=== PATIENT | female | born 1960 | race American Indian/Alaskan Native ===

== ENCOUNTER 2017-07-05 07:42 | Observation (INO) | payer OTHER ==
[2017-07-05 08:11] VITALS: BMI 40.6
--- NOTE | 2017-07-05 09:33 | CP.SDSHP ---
Same Day Surgery H & P - History Proposed Procedure: colonoscopy - Previous Medical/Surgical History Endocrine/Metabolic: Diabetes Neuro: Other (bipolar) - Allergies Allergies: Allergies No Known Allergies Allergy (Verified 07/05/17 08:07) - Physical Exam Vital Signs: Vital Signs 07/05/17 08:11 Temperature 97 F L Pulse Rate 72 Respiratory 20 Rate Blood Pressure 132/76 O2 Sat by Pulse 97 Oximetry - Date & Time Date: 07/05/17 Time: 09:33 Short Stay Discharge - Short Stay Discharge Admitting Diagnosis/Reason for Visit: SCREENING Disposition: HOME/ ROUTINE
[2017-07-05] MEDS ORDERED: Midazolam 2 MG/2 ML VIAL ONE (09:35)
[2017-07-05] MEDS ORDERED: Propofol 10 mg/ml Inj (20 ML) ONE ×2 (09:35→09:53)
--- NOTE | 2017-07-05 11:44 | PCM.RRT ---
[employer] Nurses Assessment - Situation Date: 07/05/17 Time [employer] was called: 11:30 Plan - Assessment of Findings&Treatment Plan House Doctor called for chest pain Patient is s/p colonoscopy - staff notified she was laying on her left side during the procedure. When she awoke from the procedure, she reported sharp chest pain that radiated to her left shoulder and back. It appeared there were ST elevations on the monitor. EKG was ordered, appeared bradycardia but no ST elevations or depressions were noted. Troponin was ordered - negative. On exam the chest pain was reproducible, TTP midsternal. Patient admitted for observation under manager of exhibitions and collections physician's service - Dr. Randy Smith. Cardio consulted due to risk factors DM, HLD, mother of CA in her 50s. ECHO, ROMIs and EKGs, A1C, Lipid panel, TSH, free T4. Further management as per Dr. Randy Smith.
[2017-07-05 12:28] LABS: BASO % 0.7 % (0.0-2.0); EOS # 0.1 K/uL (0.0-0.7); EOS % 1.3 % (0.0-4.0); HEMATOCRIT 34.3 % (34.0-47.0); LYMPH # 1.5 K/uL (1.0-4.3); LYMPH % 34.6 % (20.0-40.0); MEAN CELL VOLUME 90.5 fL (81.0-99.0); MEAN CORPUSCULAR HEMOGLOBIN 30.9 pg (27.0-31.0); MEAN CORPUSCULAR HGB CONC 34.1 g/dL (33.0-37.0); MEAN PLATELET VOLUME 7.7 fL (7.2-11.7); MONO # 0.2 K/uL (0.0-0.8); MONO % 5.3 % (0.0-10.0); RED CELL DISTRIBUTION WIDTH 13.7 % (11.5-14.5); WHITE BLOOD COUNT 4.4 K/uL (4.8-10.8)
--- NOTE | 2017-07-05 14:34 | RAD ---
HISTORY: C/O CHEST PAIN COMPARISON: No prior. FINDINGS: LUNGS: No active pulmonary disease. PLEURA: No significant pleural effusion identified, no pneumothorax apparent. CARDIOVASCULAR: Normal. OSSEOUS STRUCTURES: No significant abnormalities. VISUALIZED UPPER ABDOMEN: Normal. OTHER FINDINGS: None. IMPRESSION: No acute cardiopulmonary disease appreciated.
[2017-07-05 17:46] VITALS: RESP 20
[2017-07-05] MEDS: Albuterol-Ipratrop 3 mg / 0.5 (3 ml) UD INH SCH (19:46)
[2017-07-05 20:01] LABS: CHLORIDE 101 mmol/L (98-107); POTASSIUM 3.7 mmol/L (3.6-5.2); SODIUM 133 mmol/L (132-148)
[2017-07-05 20:03] LABS: ALB/GLOB RATIO 1.8 (1.0-2.1); ALKALINE PHOSPHATASE 69 U/L (38-126); ALT/SGPT 28 U/L (9-52); AST/SGOT 17 U/L (14-36); BILIRUBIN,TOTAL 0.5 mg/dL (0.2-1.3); BLOOD UREA NITROGEN 10 mg/dL (7-17); CARBON DIOXIDE 23 mmol/L (22-30); CHOLESTEROL 152 mg/dL (0-199); GFR AFRICAN-AMERICAN > 60; GLUCOSE,RANDOM 153 mg/dL (65-105)
[2017-07-05 20:04] LABS: CALCIUM 9.2 mg/dl (8.6-10.4); MAGNESIUM 1.6 mg/dL (1.6-2.3)
[2017-07-05 20:37] LABS: THYROID STIMULATING HORMONE 3.83 mIU/L (0.46-4.68)
[2017-07-05 20:53] LABS: CHLORIDE 102 mmol/L (98-107); POTASSIUM 3.8 mmol/L (3.6-5.2); SODIUM 133 mmol/L (132-148)
[2017-07-05 20:56] LABS: BLOOD UREA NITROGEN 10 mg/dL (7-17); CARBON DIOXIDE 21 mmol/L (22-30); GFR AFRICAN-AMERICAN > 60; GLUCOSE,RANDOM 133 mg/dL (65-105)
--- NOTE | 2017-07-05 23:43 | CP.PCM.HP ---
Past Patient History - Past Medical History & Family History Past Medical History?: Yes - Past Social History Smoking Status: Never Smoked - CARDIAC Hx Cardiac Disorders: Yes Hx Hypercholesterolemia: Yes - PULMONARY Hx Respiratory Disorders: Yes Hx Asthma: Yes - NEUROLOGICAL Hx Neurological Disorder: No - HEENT Hx HEENT Problems: No - RENAL Hx Chronic Kidney Disease: No - ENDOCRINE/METABOLIC Hx Endocrine Disorders: Yes Hx Diabetes Mellitus Type 2: Yes - HEMATOLOGICAL/ONCOLOGICAL Hx Blood Disorders: No - INTEGUMENTARY Hx Dermatological Problems: No - MUSCULOSKELETAL/RHEUMATOLOGICAL Hx Musculoskeletal Disorders: No Hx Falls: No - GASTROINTESTINAL Hx Gastrointestinal Disorders: No - GENITOURINARY/GYNECOLOGICAL Hx Genitourinary Disorders: No - PSYCHIATRIC Hx Psychophysiologic Disorder: Yes Hx Bipolar Disorder: Yes Hx Hallucinations: Yes Hx Paranoia: Yes Hx Substance Use: No - SURGICAL HISTORY Hx Surgeries: Yes Hx Dilation and Curettage: Yes (ECTOPIC ) Other/Comment: CYST REMOVED, ECTOPIC -D&C - ANESTHESIA Hx Anesthesia: Yes Hx Anesthesia Reactions: No Hx Malignant Hyperthermia: No Has any member of the family had a problem w/ anesthesia?: No Meds Allergies/Adverse Reactions: Allergies Allergy/AdvReac Type Severity Reaction Status Date / Time No Known Allergies Allergy Verified 07/05/17 08:07 Results - Vital Signs Recent Vital Signs: Last Vital Signs Temp 97.8 F 07/05/17 16:00 Pulse 70 07/05/17 19:47 Resp 20 07/05/17 16:00 BP 106/69 07/05/17 16:00 Pulse Ox 100 07/05/17 16:00 - Labs Result Diagrams: 07/05/17 12:19 07/05/17 20:30 Labs: Laboratory Results - last 24 hr 07/05/17 07/05/17 07/05/17 08:43 10:49 12:12 WBC RBC Hgb Hct MCV MCH MCHC RDW Plt Count MPV Neut % (Auto) Lymph % (Auto) Hand % (Auto) Eos % (Auto) Baso % (Auto) Neut # Lymph # Hand # Eos # Baso # D-Dimer, Quantitative Sodium Potassium Chloride Carbon Dioxide Anion Gap BUN Creatinine Est GFR ( Amer) Est GFR (Non-Af Amer) POC Glucose (mg/dL) 140 H 93 Random Glucose Hemoglobin A1c Calcium Phosphorus Magnesium Total Bilirubin AST ALT Alkaline Phosphatase Total Creatine Kinase CK-MB (Mass) Troponin I < 0.0120 Troponin I, Quant Total Protein Albumin Globulin Albumin/Globulin Ratio Triglycerides Cholesterol LDL Cholesterol Direct HDL Cholesterol Free T4 TSH 3rd Generation 07/05/17 07/05/17 07/05/17 12:19 12:19 16:33 WBC 4.4 L RBC 3.79 L Hgb 11.7 Hct 34.3 MCV 90.5 MCH 30.9 MCHC 34.1 RDW 13.7 Plt Count 209 MPV 7.7 Neut % (Auto) 58.1 Lymph % (Auto) 34.6 Hand % (Auto) 5.3 Eos % (Auto) 1.3 Baso % (Auto) 0.7 Neut # 2.6 Lymph # 1.5 Hand # 0.2 Eos # 0.1 Baso # 0.0 D-Dimer, Quantitative Sodium Potassium Chloride Carbon Dioxide Anion Gap BUN Creatinine Est GFR ( Amer) Est GFR (Non-Af Amer) POC Glucose (mg/dL) 137 H Random Glucose Hemoglobin A1c 8.2 H Calcium Phosphorus Magnesium Total Bilirubin AST ALT Alkaline Phosphatase Total Creatine Kinase CK-MB (Mass) Troponin I Troponin I, Quant Total Protein Albumin Globulin Albumin/Globulin Ratio Triglycerides Cholesterol LDL Cholesterol Direct HDL Cholesterol Free T4 TSH 3rd Generation 07/05/17 07/05/17 07/05/17 19:43 19:43 19:43 WBC RBC Hgb Hct MCV MCH MCHC RDW Plt Count MPV Neut % (Auto) Lymph % (Auto) Hand % (Auto) Eos % (Auto) Baso % (Auto) Neut # Lymph # Hand # Eos # Baso # D-Dimer, Quantitative Sodium 133 Potassium 3.7 Chloride 101 Carbon Dioxide 23 Anion Gap 13 BUN 10 Creatinine 0.8 Est GFR ( Amer) > 60 Est GFR (Non-Af Amer) > 60 POC Glucose (mg/dL) Random Glucose 153 H Hemoglobin A1c Calcium 9.2 Phosphorus 4.0 Magnesium 1.6 Total Bilirubin 0.5 AST 17 ALT 28 Alkaline Phosphatase 69 Total Creatine Kinase 109 CK-MB (Mass) 0.38 Troponin I Troponin I, Quant < 0.0120 Total Protein 6.0 L Albumin 3.8 Globulin 2.1 L Albumin/Globulin Ratio 1.8 Triglycerides 215 H Cholesterol 152 LDL Cholesterol Direct 95 HDL Cholesterol 44 Free T4 0.74 L TSH 3rd Generation 3.83 07/05/17 07/05/17 07/05/17 19:43 20:30 20:48 WBC RBC Hgb Hct MCV MCH MCHC RDW Plt Count MPV Neut % (Auto) Lymph % (Auto) Hand % (Auto) Eos % (Auto) Baso % (Auto) Neut # Lymph # Hand # Eos # Baso # D-Dimer, Quantitative 258 H Sodium 133 Potassium 3.8 Chloride 102 Carbon Dioxide 21 L Anion Gap 14 BUN 10 Creatinine 0.7 Est GFR ( Amer) > 60 Est GFR (Non-Af Amer) > 60 POC Glucose (mg/dL) 160 H Random Glucose 133 H Hemoglobin A1c Calcium 9.0 Phosphorus Magnesium Total Bilirubin AST ALT Alkaline Phosphatase Total Creatine Kinase CK-MB (Mass) Troponin I Troponin I, Quant Total Protein Albumin Globulin Albumin/Globulin Ratio Triglycerides Cholesterol LDL Cholesterol Direct HDL Cholesterol Free T4 TSH 3rd Generation
--- NOTE | 2017-07-06 00:34 | CON ---
DATE: REASON FOR CONSULTATION: Chest pain. HISTORY OF PRESENT ILLNESS: The patient is a 56-year-old female, who has a history of diabetes mellitus and hyperlipemia, presented for elective colonoscopy today. The patient has a history of chronic polyps and today she underwent polypectomy. Subsequently, the patient developed chest tightness, not and not associated with diaphoresis or shortness of breath and the patient required admission to telemetry. The patient is unaware of any history of chest pain in the past. SOCIAL HISTORY: The patient is a nonsmoker and nondrinker. CURRENT MEDICATIONS: Crestor 10 mg once a day, trazodone 50 mg once a day, albuterol inhaler q. 6 hours, metformin 1 gram daily, heparin 5000 units subcutaneous twice a day, Lamictal 26 mg once a day, and Risperdal 1 mg daily. REVIEW OF SYSTEMS: No nausea or vomiting. No fever or chills. No dizziness or syncope. PHYSICAL EXAMINATION: GENERAL: The patient is middle-age female who does not appear to be in any distress. VITAL SIGNS: Blood pressure of 118/77, heart rate of 61, temperature of 97.6, and respirations of 18. HEENT: Normocephalic. NECK: No JVD. CHEST: Clear. HEART: S1 and S2 regular. ABDOMEN: Soft. EXTREMITIES: No edema or calf tenderness. LABORATORY DATA: Hemoglobin A1c is 8.2. One set of troponin is negative. Hemoglobin and hematocrit are 11.7 and 34.3, platelet count of 209, and white count of 4.4. DIAGNOSTIC DATA: I did review two ECGs in the chart, both revealed sinus bradycardia with poor R-wave progression. ASSESSMENT: 1. Chest pain, rule out myocardial infarction. 2. Rule out pulmonary infarction. 3. Uncontrolled diabetes mellitus. 4. Hyperlipidemia. RECOMMENDATIONS: Continue Crestor 10 mg once a day, metformin 1 g daily, subcutaneous heparin 5000 units q. 12 hours. Obtain serial enzymes. Scheduled the patient for an echocardiogram and monitor daily EKGs. Start aspirin 81 mg once a day in the meantime. Beta-blockers is not an option because of the patient's chronic sinus bradycardia. Adam Parr MD
[2017-07-06] MEDS: Albuterol-Ipratrop 3 mg / 0.5 (3 ml) UD INH SCH ×3 (02:04→20:03)
[2017-07-06 06:22] LABS: BASO % 0.5 % (0.0-2.0); EOS # 0.1 K/uL (0.0-0.7); EOS % 1.5 % (0.0-4.0); LYMPH # 1.7 K/uL (1.0-4.3); LYMPH % 38.9 % (20.0-40.0); MEAN CELL VOLUME 88.7 fL (81.0-99.0); MEAN CORPUSCULAR HEMOGLOBIN 30.8 pg (27.0-31.0); MEAN CORPUSCULAR HGB CONC 34.8 g/dL (33.0-37.0); MEAN PLATELET VOLUME 7.5 fL (7.2-11.7); MONO # 0.2 K/uL (0.0-0.8); MONO % 4.8 % (0.0-10.0); NRBC % 0.1 % (0.0-2.0); RED CELL DISTRIBUTION WIDTH 13.7 % (11.5-14.5); WHITE BLOOD COUNT 4.4 K/uL (4.8-10.8)
[2017-07-06 07:42] LABS: CHLORIDE 101 mmol/L (98-107)
[2017-07-06 07:43] LABS: POTASSIUM 4.2 mmol/L (3.6-5.2); SODIUM 135 mmol/L (132-148)
[2017-07-06 07:46] LABS: ALB/GLOB RATIO 1.7 (1.0-2.1); ALKALINE PHOSPHATASE 72 U/L (38-126); ALT/SGPT 25 U/L (9-52); AST/SGOT 19 U/L (14-36); BILIRUBIN,TOTAL 0.6 mg/dL (0.2-1.3); BLOOD UREA NITROGEN 11 mg/dL (7-17); CALCIUM 9.3 mg/dl (8.6-10.4); CARBON DIOXIDE 25 mmol/L (22-30); GFR AFRICAN-AMERICAN > 60; GLUCOSE,RANDOM 130 mg/dL (65-105); PHOSPHOROUS 4.6 mg/dL (2.5-4.5); TOTAL PROTEIN 6.1 g/dL (6.3-8.3)
[2017-07-06 07:47] LABS: MAGNESIUM 1.7 mg/dL (1.6-2.3)
[2017-07-06] MEDS ORDERED: Iodixanol 320 MG/ML 100 ML BOTTLE IV ONE (12:03)
--- NOTE | 2017-07-06 13:00 | CT ---
PROCEDURE: CTA chest -pulmonary angiogram dated 07/06/2017 HISTORY: r/o PE COMPARISON: None available. TECHNIQUE: Axial computed tomography images were obtained of the chest in the pulmonary arterial phase of enhancement. Coronal and sagittal reformatted images were created and reviewed. Note that the examination is limited due to large body habitus, suboptimal contrast enhancement and crossing streak and beam hardening artifact Intravenous contrast dose: 100 cc Visipaque 320 Radiation dose: Total exam DLP = 463.17 mGy-cm. This CT exam was performed using one or more of the following dose reduction techniques: Automated exposure control, adjustment of the mA and/or kV according to patient size, and/or use of iterative reconstruction technique. FINDINGS: PULMONARY ARTERIES: The visualized portions of the pulmonary trunk, right and left main,, lobar, segmental and proximal subsegmental branches of the pulmonary arteries are well opacified with no definitive filling defects seen to suggest acute pulmonary embolus. Pulmonary trunk measures approximately 27.74 AORTA: No acute findings. No thoracic aortic aneurysm. Ascending thoracic aorta measures approximately kahlil 2.8 cm and descending thoracic aorta measures approximately 2.14 cm. LUNGS: Subsegmental atelectasis and or scarring of both lung bases left greater than right There is a small approximately 3 mm subpleural nodule posterolateral aspect right floor lobe. Followup in 6 months could be performed to assess stability PLEURAL SPACES: Unremarkable. No effusion or pneumothorax. HEART: Heart is borderline/ mildly enlarged. No significant pericardial effusion. LYMPH NODES: No significant mediastinal or hilar adenopathy BONES, CHEST WALL: Unremarkable. No fracture or destructive lesion OTHER FINDINGS: . Small hiatal hernia with slight wall thickening of the distal esophagus likely due to protrusion of gastric mucosa. Esophagitis not excluded. IMPRESSION: No evidence of acute central pulmonary embolus. Bibasilar atelectasis and or scarring left greater than right. Small subpleural nodule superior segment right lower lobe ; followup in 6 months could be performed.
--- NOTE | 2017-07-06 15:00 | CP.PCM.PN ---
Subjective - Date & Time of Evaluation Date of Evaluation: 07/06/17 Time of Evaluation: 09:40 - Subjective Subjective: clinically same Objective - Vital Signs/Intake and Output Vital Signs (last 24 hours): Temp Pulse Resp BP Pulse Ox 98 F 66 20 108/71 96 07/06/17 07:00 07/06/17 07:00 07/06/17 07:00 07/06/17 07:00 07/06/17 07:00 Intake and Output: 07/06/17 07/06/17 06:59 18:59 Intake Total 480 Balance 480 - Medications Medications: Current Medications Albuterol/Ipratropium (Duoneb 3 Mg/0.5 Mg (3 Ml) Ud) 3 ml INH RQ6 [facility] Last Admin: 07/06/17 07:43 Dose: Not Given Aspirin (Aspirin Chewable) 81 mg PO DAILY [facility] Last Admin: 07/06/17 11:32 Dose: 81 mg Heparin Sodium (Porcine) (Heparin) 5,000 units SC Q12 [facility] Last Admin: 07/06/17 11:33 Dose: Not Given Lamotrigine (Lamictal) 25 mg PO DAILY [facility] Last Admin: 07/06/17 12:56 Dose: 25 mg Metformin HCl (Glucophage) 1,000 mg PO DAILY [facility] Last Admin: 07/06/17 11:32 Dose: 1,000 mg Risperidone (Risperdal Tab) 1 mg PO DAILY [facility] Last Admin: 07/06/17 11:32 Dose: 1 mg Rosuvastatin Calcium (Crestor) 10 mg PO HS [facility] Last Admin: 07/05/17 22:55 Dose: Not Given Trazodone HCl (Desyrel) [address] [facility] - Labs Labs: 07/06/17 06:07 07/06/17 06:07 Assessment and Plan - Assessment and Plan (Free Text) Plan: Continue same status post seen by cardiology Follow-up with the reports
--- NOTE | 2017-07-06 17:11 | PN ---
DATE: SUBJECTIVE: The patient is experiencing sharp chest pain on the left side that is precipitated by deep breathing. She denies any associated diaphoresis or arm numbness. PHYSICAL EXAMINATION VITAL SIGNS: Blood pressure 108/71, heart rate 66, temperature 98, respirations 20. HEENT: Normocephalic. CHEST: Clear. HEART: S1 and S2 regular. ABDOMEN: Soft. EXTREMITIES: No edema. LABORATORY DATA: Two sets of troponins are negative. SMA-7 is within normal limits except glucose of 130. TSH level is within normal limits. D-dimer was elevated at 258. CT angio of the chest revealed no evidence of pulmonary embolus. ASSESSMENT: 1. Atypical chest pain, myocardial infarction was ruled out. 2. Diabetes mellitus. 3. Hyperlipidemia. RECOMMENDATIONS: Continue aspirin, Crestor, Glucophage, subcutaneous heparin. We will review echocardiographic study performed today. Adam Parr MD
--- NOTE | 2017-07-06 20:27 | CP.PCM.CON ---
Past Patient History - Past Medical History & Family History Past Medical History?: Yes - Past Social History Smoking Status: Never Smoked - CARDIAC Hx Cardiac Disorders: Yes Hx Hypercholesterolemia: Yes - PULMONARY Hx Respiratory Disorders: Yes Hx Asthma: Yes - NEUROLOGICAL Hx Neurological Disorder: No - HEENT Hx HEENT Problems: No - RENAL Hx Chronic Kidney Disease: No - ENDOCRINE/METABOLIC Hx Endocrine Disorders: Yes Hx Diabetes Mellitus Type 2: Yes - HEMATOLOGICAL/ONCOLOGICAL Hx Blood Disorders: No - INTEGUMENTARY Hx Dermatological Problems: No - MUSCULOSKELETAL/RHEUMATOLOGICAL Hx Musculoskeletal Disorders: No Hx Falls: No - GASTROINTESTINAL Hx Gastrointestinal Disorders: No - GENITOURINARY/GYNECOLOGICAL Hx Genitourinary Disorders: No - PSYCHIATRIC Hx Psychophysiologic Disorder: Yes Hx Bipolar Disorder: Yes Hx Hallucinations: Yes Hx Paranoia: Yes Hx Substance Use: No - SURGICAL HISTORY Hx Surgeries: Yes Hx Dilation and Curettage: Yes (ECTOPIC ) Other/Comment: CYST REMOVED, ECTOPIC -D&C - ANESTHESIA Hx Anesthesia: Yes Hx Anesthesia Reactions: No Hx Malignant Hyperthermia: No Has any member of the family had a problem w/ anesthesia?: No Meds Allergies/Adverse Reactions: Allergies Allergy/AdvReac Type Severity Reaction Status Date / Time No Known Allergies Allergy Verified 07/05/17 08:07 - Medications Medications: Current Medications Albuterol/Ipratropium (Duoneb 3 Mg/0.5 Mg (3 Ml) Ud) 3 ml INH RQ6 [facility] Last Admin: 07/06/17 20:03 Dose: 3 ml Aspirin (Aspirin Chewable) 81 mg PO DAILY [facility] Last Admin: 07/06/17 11:32 Dose: 81 mg Heparin Sodium (Porcine) (Heparin) 5,000 units SC Q12 [facility] Last Admin: 07/06/17 11:33 Dose: Not Given Lamotrigine (Lamictal) 25 mg PO DAILY [facility] Last Admin: 07/06/17 12:56 Dose: 25 mg Metformin HCl (Glucophage) 1,000 mg PO DAILY [facility] Last Admin: 07/06/17 11:32 Dose: 1,000 mg Risperidone (Risperdal Tab) 1 mg PO DAILY [facility] Last Admin: 07/06/17 11:32 Dose: 1 mg Rosuvastatin Calcium (Crestor) 10 mg PO HS [facility] Last Admin: 07/05/17 22:55 Dose: Not Given Trazodone HCl (Desyrel) 50 mg PO HS [facility] Results - Vital Signs Recent Vital Signs: Last Vital Signs Temp 98.3 F 07/06/17 15:15 Pulse 75 07/06/17 15:15 Resp 20 07/06/17 15:15 BP 125/84 07/06/17 15:15 Pulse Ox 96 07/06/17 15:15 - Labs Result Diagrams: 07/06/17 06:07 07/06/17 06:07 Labs: Laboratory Results - last 24 hr 07/05/17 07/05/17 07/05/17 19:43 20:30 20:48 WBC RBC Hgb Hct MCV MCH MCHC RDW Plt Count MPV Neut % (Auto) Lymph % (Auto) [place] % (Auto) Eos % (Auto) Baso % (Auto) Neut # Lymph # [place] # Eos # Baso # Sodium 133 Potassium 3.8 Chloride 102 Carbon Dioxide 21 L Anion Gap 14 BUN 10 Creatinine 0.7 Est GFR ( Amer) > 60 Est GFR (Non-Af Amer) > 60 POC Glucose (mg/dL) 160 H Random Glucose 133 H Calcium 9.0 Phosphorus Magnesium Total Bilirubin AST ALT Alkaline Phosphatase Total Creatine Kinase CK-MB (Mass) Troponin I, Quant Total Protein Albumin Globulin Albumin/Globulin Ratio TSH 3rd Generation 3.83 07/06/17 07/06/17 07/06/17 01:23 06:07 06:07 WBC 4.4 L RBC 4.17 Hgb 12.9 Hct 37.0 MCV 88.7 MCH 30.8 MCHC 34.8 RDW 13.7 Plt Count 237 MPV 7.5 Neut % (Auto) 54.3 Lymph % (Auto) 38.9 [place] % (Auto) 4.8 Eos % (Auto) 1.5 Baso % (Auto) 0.5 Neut # 2.4 Lymph # 1.7 [place] # 0.2 Eos # 0.1 Baso # 0.0 Sodium 135 Potassium 4.2 Chloride 101 Carbon Dioxide 25 Anion Gap 13 BUN 11 Creatinine 0.8 Est GFR ( Amer) > 60 Est GFR (Non-Af Amer) > 60 POC Glucose (mg/dL) Random Glucose 130 H Calcium 9.3 Phosphorus 4.6 H Magnesium 1.7 Total Bilirubin 0.6 AST 19 ALT 25 Alkaline Phosphatase 72 Total Creatine Kinase 76 CK-MB (Mass) < 0.22 Troponin I, Quant < 0.0120 Total Protein 6.1 L Albumin 3.8 Globulin 2.3 Albumin/Globulin Ratio 1.7 TSH 3rd Generation 07/06/17 07/06/17 07/06/17 06:54 11:37 17:25 WBC RBC Hgb Hct MCV MCH MCHC RDW Plt Count MPV Neut % (Auto) Lymph % (Auto) [place] % (Auto) Eos % (Auto) Baso % (Auto) Neut # Lymph # [place] # Eos # Baso # Sodium Potassium Chloride Carbon Dioxide Anion Gap BUN Creatinine Est GFR ( Amer) Est GFR (Non-Af Amer) POC Glucose (mg/dL) 127 H 122 H 131 H Random Glucose Calcium Phosphorus Magnesium Total Bilirubin AST ALT Alkaline Phosphatase Total Creatine Kinase CK-MB (Mass) Troponin I, Quant Total Protein Albumin Globulin Albumin/Globulin Ratio [facility] 3rd Generation
[2017-07-07] MEDS: Albuterol-Ipratrop 3 mg / 0.5 (3 ml) UD INH SCH (01:27)
[2017-07-07 09:29] VITALS: BP 135/74; PULSE 83; TEMP 98.1; O2SAT 97
--- NOTE | 2017-07-07 12:05 | CARD ---
APPROVED REPORT EXAM: Two-dimensional and M-mode echocardiogram with Doppler and color Doppler. Other Information Quality : GoodRhythm : NSR INDICATION Chest Pain RISK FACTORS Diabetes M-Mode DIMENSIONS RVDd1.82 (2.1-3.2cm)Left Atrium (MM)3.54 (2.5-4.0cm) IVSd1.20 (0.7-1.1cm)Aortic Root2.43 (2.2-3.7cm) LVDd4.72 (4.0-5.6cm)Aortic Cusp Exc.1.42 (1.5-2.0cm) PWd1.14 (0.7-1.1cm)FS (%) 34 % LVDs3.12 (2.0-3.8cm)LVEF (%)63 (>50%) Mitral Valve MV E Pgkonvkb99.8cm/sMV A Motyzxop10.7cm/sE/A ratio0.8 TDI E/Lateral E'0.0E/Medial E'0.0 Tricuspid Valve TR Peak [id number]/sTR Peak Gr.[id number] LEFT VENTRICLE The left ventricle is normal size. There is normal left ventricular wall thickness. The left ventricular function is normal. The left ventricular ejection fraction is within the normal range. No regional wall motion abnormalities noted. Transmitral Doppler flow pattern is Grade I-abnormal relaxation pattern. No left ventricle thrombus noted on this study. There is no ventricular septal defect visualized. There is no left ventricular aneurysm. There is no mass noted in the left ventricle. RIGHT VENTRICLE The right ventricle is normal size. There is normal right ventricular wall thickness. The right ventricular systolic function is normal. ATRIA The left atrium size is normal. The right atrium size is normal. The interatrial septum is intact with no evidence for an atrial septal defect. AORTIC VALVE The aortic valve is normal in structure and function. No aortic regurgitation is present. There is no aortic valvular stenosis. There is no aortic valvular vegetation. MITRAL VALVE The mitral valve is normal in structure and function. There is no evidence of mitral valve prolapse. There is no mitral valve stenosis. Mitral regurgitation is mild. TRICUSPID VALVE The tricuspid valve is normal in structure and function. There is mild tricuspid regurgitation. Right ventricular systolic pressure is estimated at 30-40 mmHg. There is no tricuspid valve prolapse or vegetation. There is no tricuspid valve stenosis. PULMONIC VALVE The pulmonary valve is normal in structure and function. There is no pulmonic valvular regurgitation. There is no pulmonic valvular stenosis. GREAT VESSELS The aortic root is normal in size. The ascending aorta is normal in size. The pulmonary artery is normal. The IVC is normal in size and collapses >50% with inspiration. PERICARDIAL EFFUSION The pericardium appears normal. There is no pleural effusion. <Conclusion> The left ventricular function is normal. The left ventricular ejection fraction is within the normal range. No regional wall motion abnormalities noted. Mitral regurgitation is mild. There is mild tricuspid regurgitation. Right ventricular systolic pressure is estimated at 30-40 mmHg.
--- NOTE | 2017-07-07 14:44 | CP.PCM.PN ---
Subjective - Date & Time of Evaluation Date of Evaluation: 07/07/17 Objective - Vital Signs/Intake and Output Vital Signs (last 24 hours): Temp Pulse Resp BP Pulse Ox 98.1 F 83 20 135/74 97 07/07/17 09:28 07/07/17 09:28 07/07/17 09:28 07/07/17 09:28 07/07/17 09:28 - Medications Medications: Current Medications Albuterol/Ipratropium (Duoneb 3 Mg/0.5 Mg (3 Ml) Ud) 3 ml INH RQ6 [facility] Last Admin: 07/07/17 01:27 Dose: Not Given Aspirin (Aspirin Chewable) 81 mg PO DAILY [facility] Last Admin: 07/07/17 09:58 Dose: 81 mg Heparin Sodium (Porcine) (Heparin) 5,000 units SC Q12 [facility] Last Admin: 07/07/17 09:59 Dose: Not Given Lamotrigine (Lamictal) 25 mg PO DAILY [facility] Last Admin: 07/07/17 09:58 Dose: 25 mg Metformin HCl (Glucophage) 1,000 mg PO DAILY [facility] Last Admin: 07/07/17 09:59 Dose: Not Given Risperidone (Risperdal Tab) 1 mg PO DAILY [facility] Last Admin: 07/07/17 09:59 Dose: 1 mg Rosuvastatin Calcium (Crestor) 10 mg PO HS [facility] Last Admin: 07/06/17 22:07 Dose: 10 mg Trazodone HCl (Desyrel) 50 mg PO HS [facility] Last Admin: 07/06/17 22:07 Dose: 50 mg - Labs Labs: 07/06/17 06:07 07/06/17 06:07 Assessment and Plan - Assessment and Plan (Free Text) Plan: cleared by dr. vandana dupree as out pt for subpleurl nodule siwht pmd pt told about it cleraly pt david dischraged with followup by dr. gates 48 hours no newcomplaints pt adv to take asp and cnsult dr. franco or dr. layne as out pt..
--- NOTE | 2017-07-08 12:57 | CARD ---
APPROVED REPORT EKG Measurement Heart [id number] <Conclusion> Normal sinus rhythm Nonspecific T wave abnormality Abnormal ECG
== END 2017-07-07 15:15 | disposition home or self-care (01) ==
LOC: C.ENDO 07:42 → C.6T 11:37
PROVIDERS: ADMIT Internal Medicine Nephrology; ATTEND Internal Medicine Nephrology
DX: R07.89 Other chest pain (principal); E78.5 Hyperlipidemia, unspecified; F31.9 Bipolar disorder, unspecified; J45.909 Unspecified asthma, uncomplicated; E11.65 Type 2 diabetes mellitus with hyperglycemia; K62.1 Rectal polyp; D12.0 Benign neoplasm of cecum; K57.90 Diverticulosis of intestine, part unspecified, without perforation or abscess without bleeding; K64.8 Other hemorrhoids; K64.4 Residual hemorrhoidal skin tags
CPT/HCPCS: 36415; 45388; 71010; 71275; 80048; 80053; 80061; 82948; 83036; 83735; 84100; 84439; 84443; 84484; 85025; 85378; 88305; 93005; 93306; 94640; G0378; J1644; J2250; J2704; J3010; Q9967